=== PATIENT | male | born 1945 | race Caucasian/White ===

== ENCOUNTER 2017-09-28 05:45 | Day surgery (SDC) | payer MEDICARE ==
[2017-09-26 09:40] VITALS: BP 151/77
[2017-09-26 09:46] LABS: BASOPHILS % (AUTO) 0.5 % (0.0-5.0); EOSINOPHILS % (AUTO) 2.1 % (0.0-8.0); HEMATOCRIT 43.3 % (42-54); LYMPHOCYTES % (AUTO) 14.9 % (21.0-51.0); MEAN CORPUSCULAR HEMOGLOBIN 29.9 pg (27.0-33.0); MEAN CORPUSCULAR HGB CONC 34.2 g/dL (32.0-36.0); MEAN CORPUSCULAR VOLUME 87.5 fL (79-99); MONOCYTES % (AUTO) 7.3 % (3.0-13.0); NEUTROPHILS % (AUTO) 75.2 % (40.0-77.0); PLATELET COUNT (AUTO) 204 K/uL (130-400); RED BLOOD CELL COUNT(AUTO) 4.95 MIL/uL (4.50-6.20); RED CELL DISTRIBUTION WIDTH 17.6 % (11.0-15.5); WHITE BLOOD COUNT (AUTO) 7.8 K/uL (4.8-10.8)
[2017-09-26 09:55] LABS: CREATININE 1.2 mg/dL (0.5-1.5); POTASSIUM 4.3 mmol/L (3.5-5.1)
[2017-09-26 09:56] LABS: APPEARANCE,URINE CLEAR (CLEAR); BILIRUBIN,URINE NEGATIVE (NEGATIVE); COLOR,URINE YELLOW (YELLOW); GLUCOSE, URINE (UA) 100 mg/dL (NEGATIVE); KETONES,URINE NEGATIVE (NEGATIVE); LEUKOCYTE ESTERASE ,URINE TRACE (NEGATIVE); NITRATE,URINE NEGATIVE (NEGATIVE); OCCULT BLOOD,URINE SMALL (NEGATIVE); PH,URINE 5.5 (5.0-8.0); PROTEIN,URINE 100 (NEGATIVE); UROBILINOGEN,URINE 0.2 mg/dL (0.2-1.0)
[2017-09-26 10:04] LABS: INR 2.07 (0.85-1.15); PARTIAL THROMBOPLASTIN TIME 37.8 SEC (26.3-35.5); PROTHROMBIN TIME 21.4 SEC (9.6-11.6)
[2017-09-26 10:09] LABS: BACTERIA,URINE Rare /HPF (None Seen); RBC,URINE 0-1 /HPF (0-1); SQUAMOUS EPITHELIAL CELL,UR Rare /HPF (0-2); WBC,URINE 0-1 /HPF (0-1)
[2017-09-28] VITALS (9 sets, daily range): BP systolic 119–158; BP diastolic 58–84
[~2017-09-28] VITALS: Ht 182.9 cm; Wt 82.7 kg
[~2017-09-28 05:45] MED LIST: ALLO100T PO; CARAL PO; CARV25TA PO; CLON1TAB5 PO; COLC0.6T67 PO; DIGO125T87 PO; DOCU-272 PO; ESOM20CA31 PO; FISH1CAP49 PO; FLUT1DIS3 IH; FURO40TA5 PO; GUAN2TAB PO; INSU3INS3 SQ; ISOS60TA4 PO; LEVE250T2 PO; SODIUM CHLORIDE 0.9% 500ML 500 ML IV SCH; TRAZ-185 PO; WARF10TA6 PO; WARF7.5T6 PO; iron PO
[2017-09-28 06:38] LABS: INR 1.28 (0.85-1.15); PROTHROMBIN TIME 13.4 SEC (9.6-11.6)
[2017-09-28] MEDS ORDERED: LIDOCAINE HCL 2% 20ML ONE (07:13)
[2017-09-28] MEDS ORDERED: ISOVUE-300 100 ML VIAL IV ONE ×3 (07:13→07:57)
[2017-09-28] MEDS ORDERED: SODIUM CHLORIDE 0.9% 1000ML 1,000 ML IV ONE (07:17)
[2017-09-28] MEDS ORDERED: PHARMACY COMMUNICATION MISC SCH (07:45)
[2017-09-28] MEDS ORDERED: HYDRALAZINE HCL 20 MG/ML VIAL ONE (08:12)
[2017-09-28] MEDS ORDERED: DEXTROSE 50%-WATER 50 ML DISP.SYRIN IV PRN (08:15)
[2017-09-28] MEDS ORDERED: GLUCAGON 1MG KIT 1 MG ML IM PRN (08:15)
[2017-09-28] MEDS ORDERED: INSULIN HUMULIN R 100 UNIT/ML 3ML ONE (09:14)
[2017-09-28] MEDS ORDERED: INSULIN HUMULIN R 100 UNIT/ML 3ML SQ SCH (11:30)
[2017-10-15] MEDS ORDERED: TRAZ-185 PO (13:07)
== END 2017-09-28 11:35 | disposition home or self-care (01) ==
LOC: DAH 05:45
PROVIDERS: ATTEND Internal Medicine Cardiovascular Disease
DX: I65.22 Occlusion and stenosis of left carotid artery (principal); I48.2 Chronic atrial fibrillation; I10 Essential (primary) hypertension; I25.2 Old myocardial infarction; E78.5 Hyperlipidemia, unspecified; Z79.01 Long term (current) use of anticoagulants; Z68.21 Body mass index [BMI] 21.0-21.9, adult; Z79.4 Long term (current) use of insulin; Z79.899 Other long term (current) drug therapy; I25.10 Atherosclerotic heart disease of native coronary artery without angina pectoris; Z95.1 Presence of aortocoronary bypass graft; E11.9 Type 2 diabetes mellitus without complications; Z88.8 Allergy status to other drugs, medicaments and biological substances
CPT/HCPCS: 36224; 36415 ×2; 71045; 80048; 81001; 82948 ×2; 85025; 85610 ×2; 85730; 93005; A4606; C1760; C1894; J0360; J1644; J1815; J3490; J7030; Q9967 ×2; 36222; 36228

== ENCOUNTER 2017-10-15 10:15 | Inpatient (IN) | payer MEDICARE ==
[~2017-10-15] VITALS: Ht 64.5 cm; Wt 84.5 kg
[~2017-10-15 10:15] MED LIST changes: -CARAL PO; -CLON1TAB5 PO; -DOCU-272 PO; -ESOM20CA31 PO; -FISH1CAP49 PO; -FLUT1DIS3 IH; -FURO40TA5 PO; -INSU3INS3 SQ; -SODIUM CHLORIDE 0.9% 500ML 500 ML IV SCH; -iron PO
[2017-10-15 10:55] VITALS: BP 189/81
[2017-10-15 11:17] LABS: BASOPHILS % (AUTO) 0.7 % (0.0-5.0); HEMATOCRIT 43.2 % (42-54); LYMPHOCYTES % (AUTO) 18.1 % (21.0-51.0); MEAN CORPUSCULAR HEMOGLOBIN 30.8 pg (27.0-33.0); MEAN CORPUSCULAR HGB CONC 34.8 g/dL (32.0-36.0); MEAN CORPUSCULAR VOLUME 88.6 fL (79-99); MONOCYTES % (AUTO) 8.5 % (3.0-13.0); NEUTROPHILS % (AUTO) 70.7 % (40.0-77.0); PLATELET COUNT (AUTO) 251 K/uL (130-400); RED BLOOD CELL COUNT(AUTO) 4.88 MIL/uL (4.50-6.20); RED CELL DISTRIBUTION WIDTH 16.4 % (11.0-15.5); WHITE BLOOD COUNT (AUTO) 7.4 K/uL (4.8-10.8)
[2017-10-15 11:23] LABS: CREATININE 1.2 mg/dL (0.5-1.5); POTASSIUM 4.6 mmol/L (3.5-5.1)
[2017-10-15 11:29] LABS: INR 1.3 (0.85-1.15); PARTIAL THROMBOPLASTIN TIME 36.2 SEC (26.3-35.5); PROTHROMBIN TIME 13.6 SEC (9.6-11.6)
[2017-10-15] MEDS ORDERED: SUCR1TAB2 PO (13:00)
[2017-10-15] MEDS ORDERED: FERS325 PO (13:00)
[2017-10-15] MEDS ORDERED: ADV250 IH (13:00)
[2017-10-15] MEDS ORDERED: ESOM20CA39 PO (13:00)
[2017-10-15] MEDS ORDERED: CLON0.5T23 PO (13:00)
[2017-10-15] MEDS ORDERED: MELA5CAP PO (13:07)
[2017-10-15] MEDS ORDERED: ASCO10007 PO (13:07)
[2017-10-15] MEDS ORDERED: vitamin b12 PO (13:07)
[2017-10-15] MEDS ORDERED: INUL1TAB4 PO (13:07)
[2017-10-15] MEDS ORDERED: ENOX80DI8 SQ (13:07)
[2017-10-15] MEDS ORDERED: DIPH25 PO (13:07)
[2017-10-15] MEDS ORDERED: INSU100I26 SQ (13:07)
[2017-10-15] MEDS ORDERED: FOLI-74 PO (13:09)
[2017-10-15] MEDS ORDERED: flonase EN (13:09)
[2017-10-17] VITALS (30 sets, daily range): BP systolic 134–216; BP diastolic 62–108
[2017-10-17] MEDS: CEFAZOLIN SODIUM 1 GM VIAL IVP SCH ×2 (05:00→08:45)
[2017-10-17] MEDS ORDERED: SODIUM CHLORIDE 0.9% 1000ML 1,000 ML IV ONE (07:59)
[2017-10-17] MEDS ORDERED: FENTANYL CITRATE PF 50 MCG/1 ML 2ML VIAL ONE ×5 (08:08→10:20)
[2017-10-17] MEDS ORDERED: MIDAZOLAM HCL 1 MG/ML 2ML VIAL ONE ×3 (08:08→10:09)
[2017-10-17] MEDS ORDERED: DEXMEDETOMIDINE HCL 200 MCG/2 ML VIAL IV SCH (08:15)
[2017-10-17] MEDS ORDERED: LIDOCAINE HCL 1% 20 ML VIAL ONE (08:16)
[2017-10-17] MEDS ORDERED: BUPIVACAINE/PF 0.25% 10ML VIAL IJ ONE (08:16)
[2017-10-17] MEDS ORDERED: SODIUM BICARB [NEONATAL] 4.2% 10ML SYG ONE (08:16)
[2017-10-17] MEDS ORDERED: BACITRACIN 50,000 UNIT VIAL ONE (08:17)
[2017-10-17] MEDS ORDERED: NAPR-1023 PO (08:36)
[2017-10-17] MEDS ORDERED: TRAM50TA4 PO (08:36)
[2017-10-17] MEDS ORDERED: SERT50TA PO (08:36)
[2017-10-17 08:47] LABS: INR 1.05 (0.85-1.15); PARTIAL THROMBOPLASTIN TIME 29.2 SEC (26.3-35.5)
[2017-10-17] MEDS ORDERED: CEFAZOLIN SODIUM 1 GM VIAL ONE (08:57)
[2017-10-17] MEDS ORDERED: NITROGLYCERIN 50 MG/D5% WATER 1 BOT ONE ×2 (09:42→16:58)
[2017-10-17] MEDS ORDERED: LABETALOL HCL 5 MG/ML 20ML VIAL IV ONE ×2 (09:46→13:12)
[2017-10-17] MEDS ORDERED: THROMBIN-JMI 5000 UNIT/VIAL TP ONE (10:34)
[2017-10-17] MEDS: ISOSORBIDE MONO 60 MG TAB.SR PO SCH (14:07)
[2017-10-17] MEDS: CARVEDILOL 12.5 MG TABLET PO SCH ×2 (14:07→20:05)
[2017-10-17] MEDS ORDERED: HYDROCODONE/ACETAMINOPHEN 7.5/325 MG TAB PO PRN ×2 (14:15→14:30)
[2017-10-17] MEDS: NITROGLYCERIN 1GM/1 INCH PACKET TD SCH ×2 (14:49→22:18)
[2017-10-17] MEDS: LABETALOL HCL 5 MG/ML 20ML VIAL IV PRN ×4 (15:37→21:33)
[2017-10-17] MEDS ORDERED: HYDRALAZINE HCL 20 MG/ML VIAL IM STA (15:46)
[2017-10-17] MEDS ORDERED: HYDRALAZINE HCL 20 MG/ML VIAL ONE ×2 (15:48→17:15)
[2017-10-17] MEDS: ONDANSETRON HCL 4 MG/2 ML VIAL IVP PRN (17:04)
[2017-10-17] MEDS ORDERED: HYDRALAZINE HCL 20 MG/ML VIAL IV STA (17:13)
[2017-10-17] MEDS ORDERED: AMLODIPINE BESYLATE 5 MG TAB PO SCH (17:45)
[2017-10-17] MEDS ORDERED: LABETALOL HCL 5 MG/ML 20ML VIAL IV SCH (17:45)
[2017-10-17] MEDS: HYDRALAZINE HCL 20 MG/ML VIAL IV PRN (19:53)
[2017-10-17] MEDS: NITROGLYCERIN 50 MG/D5% WATER 250 BOT IV PRN (19:55)
[2017-10-17] MEDS ORDERED: AMLODIPINE BESYLATE 5 MG TAB PO STA (20:53)
[2017-10-17] MEDS: INSULIN HUMULIN R 100 UNIT/ML 3ML SQ SCH (21:40)
[2017-10-18] VITALS (27 sets, daily range): BP systolic 139–195; BP diastolic 70–103
[2017-10-18] MEDS: HYDRALAZINE HCL 20 MG/ML VIAL IV PRN ×3 (00:07→18:08)
[2017-10-18] MEDS: ONDANSETRON HCL 4 MG/2 ML VIAL IVP PRN ×2 (00:52→07:46)
[2017-10-18] MEDS: NITROGLYCERIN 50 MG/D5% WATER 250 BOT IV PRN ×2 (00:57→06:38)
[2017-10-18 04:10] LABS: BASOPHILS % (AUTO) 0.2 % (0.0-5.0); EOSINOPHILS % (AUTO) 0.1 % (0.0-8.0); HEMATOCRIT 42.8 % (42-54); LYMPHOCYTES % (AUTO) 4.9 % (21.0-51.0); MEAN CORPUSCULAR HEMOGLOBIN 30.2 pg (27.0-33.0); MEAN CORPUSCULAR HGB CONC 34.4 g/dL (32.0-36.0); MEAN CORPUSCULAR VOLUME 87.7 fL (79-99); MONOCYTES % (AUTO) 6.7 % (3.0-13.0); NEUTROPHILS % (AUTO) 88.1 % (40.0-77.0); NUCLEATED RED BLOOD CELLS 0.1 % (0.0-0.19); PLATELET COUNT (AUTO) 260 K/uL (130-400); RED BLOOD CELL COUNT(AUTO) 4.88 MIL/uL (4.50-6.20); RED CELL DISTRIBUTION WIDTH 15.8 % (11.0-15.5); WHITE BLOOD COUNT (AUTO) 14.2 K/uL (4.8-10.8)
[2017-10-18] MEDS: NITROGLYCERIN 1GM/1 INCH PACKET TD SCH ×3 (06:18→20:29)
[2017-10-18] MEDS: INSULIN HUMULIN R 100 UNIT/ML 3ML SQ SCH ×4 (06:19→20:27)
[2017-10-18] MEDS: LABETALOL HCL 5 MG/ML 20ML VIAL IV PRN ×3 (06:33→17:12)
[2017-10-18] MEDS ORDERED: HEPARIN 25000 UNITS/250 ML D5W 250 ML IV PRN (07:30)
[2017-10-18] MEDS ORDERED: WARFARIN SODIUM 10 MG TABLET PO SCH (07:45)
[2017-10-18] MEDS: ISOSORBIDE MONO 60 MG TAB.SR PO SCH (07:50)
[2017-10-18 07:53] LABS: INR 1.03 (0.85-1.15); PARTIAL THROMBOPLASTIN TIME 27.5 SEC (26.3-35.5); PROTHROMBIN TIME 10.8 SEC (9.6-11.6)
[2017-10-18] MEDS: ENOXAPARIN SODIUM 80 MG/0.8 ML SQ SCH ×2 (08:01→20:24)
[2017-10-18] MEDS: FUROSEMIDE 40 MG TABLET PO SCH (08:01)
[2017-10-18] MEDS: PANTOPRAZOLE SODIUM 40 MG TABLET.DR PO SCH (08:01)
[2017-10-18] MEDS: CARVEDILOL 25 MG TABLET PO SCH ×2 (08:02→20:23)
[2017-10-18] MEDS: GUANFACINE HCL 1 MG TAB PO SCH (08:14)
[2017-10-18] MEDS: ALLOPURINOL 100 MG TABLET PO SCH ×3 (08:28→20:23)
[2017-10-18] MEDS ORDERED: AMLODIPINE BESYLATE 5 MG TAB PO SCH (09:00)
[2017-10-18] MEDS ORDERED: ENOXAPARIN SODIUM 1 MG/KG SQ SCH (09:00)
[2017-10-18] MEDS: SUCRALFATE 1 GM/10 ML PO SCH ×3 (11:47→20:23)
[2017-10-18] MEDS ORDERED: ACETAMINOPHEN 325 MG TAB PO PRN (19:15)
[2017-10-19] VITALS (8 sets, daily range): BP systolic 147–177; BP diastolic 54–98
[2017-10-19 03:52] LABS: HEMATOCRIT 46.6 % (42-54); MEAN CORPUSCULAR HEMOGLOBIN 30.7 pg (27.0-33.0); MEAN CORPUSCULAR HGB CONC 34.9 g/dL (32.0-36.0); MEAN CORPUSCULAR VOLUME 88.2 fL (79-99); PLATELET COUNT (AUTO) 236 K/uL (130-400); RED BLOOD CELL COUNT(AUTO) 5.29 MIL/uL (4.50-6.20); WHITE BLOOD COUNT (AUTO) 10.8 K/uL (4.8-10.8)
[2017-10-19 03:57] LABS: INR 1.1 (0.85-1.15); PROTHROMBIN TIME 11.5 SEC (9.6-11.6)
[2017-10-19 04:36] LABS: BAND NEUTROPHILS % (MANUAL) 3 % (0-2); EOSINOPHILS % (MANUAL) 1 % (1-6); LYMPHOCYTES % (MANUAL) 11 % (22-44); MAN.DIFF COMMENT-IMPRESSION MANUAL DIFFERENTIAL; MONOCYTES % (MANUAL) 9 % (2-9); PLATELET MORPHOLOGY COMMENT ADEQUATE; SEGMENTED NEUTROPHILS % 76 % (40-70)
[2017-10-19] MEDS: NITROGLYCERIN 1GM/1 INCH PACKET TD SCH (05:51)
[2017-10-19] MEDS: SUCRALFATE 1 GM/10 ML PO SCH (05:51)
[2017-10-19] MEDS: INSULIN HUMULIN R 100 UNIT/ML 3ML SQ SCH (05:53)
[2017-10-19] MEDS: HYDRALAZINE HCL 20 MG/ML VIAL IV PRN (06:08)
[2017-10-19] MEDS ORDERED: ENOX80DI8 SQ (07:16)
[2017-10-19] MEDS ORDERED: AMLO5TAB4 PO (07:16)
[2017-10-19] MEDS ORDERED: WARFARIN SODIUM 10 MG TABLET PO SCH (07:30)
[2017-10-19] MEDS ORDERED: POLYETHYLENE GLYCOL 3350 17 GM POWD.PACK PO SCH (07:30)
[2017-10-19] MEDS: ISOSORBIDE MONO 60 MG TAB.SR PO SCH (08:35)
[2017-10-19] MEDS: CARVEDILOL 25 MG TABLET PO SCH (08:35)
[2017-10-19] MEDS: FUROSEMIDE 40 MG TABLET PO SCH (08:36)
[2017-10-19] MEDS: PANTOPRAZOLE SODIUM 40 MG TABLET.DR PO SCH (08:36)
[2017-10-19] MEDS: ALLOPURINOL 100 MG TABLET PO SCH (08:37)
[2017-10-19] MEDS: ENOXAPARIN SODIUM 80 MG/0.8 ML SQ SCH (08:39)
[2017-10-19] MEDS: GUANFACINE HCL 1 MG TAB PO SCH (08:46)
[2017-10-19] MEDS ORDERED: DIGOXIN 125 MCG TABLET PO SCH (09:00)
[2017-10-19] MEDS ORDERED: AMLODIPINE BESYLATE 5 MG TAB PO SCH (09:00)
[2017-10-19] MEDS ORDERED: ASPIRIN 81MG TAB.CHEW PO SCH (09:00)
== END 2017-10-19 11:20 | disposition home or self-care (01) | DRG 39 ==
LOC: EDSTATUS 10:15 → DAHIP 10-17 07:26 → 2CH 10-17 11:58
PROVIDERS: ADMIT Surgery; ATTEND Surgery
PROC: 03CJ0ZZ Extirpation of Matter from Left Common Carotid Artery, Open Approach (ICD-10-PCS; principal; 2017-10-17 08:30)
DX: I65.22 Occlusion and stenosis of left carotid artery (principal); E11.22 Type 2 diabetes mellitus with diabetic chronic kidney disease; I48.2 Chronic atrial fibrillation; N18.3 Chronic kidney disease, stage 3 (moderate); I12.9 Hypertensive chronic kidney disease with stage 1 through stage 4 chronic kidney disease, or unspecified chronic kidney disease; E78.5 Hyperlipidemia, unspecified; I25.10 Atherosclerotic heart disease of native coronary artery without angina pectoris; I35.8 Other nonrheumatic aortic valve disorders; Z16.24 Resistance to multiple antibiotics; Z95.2 Presence of prosthetic heart valve; Z79.01 Long term (current) use of anticoagulants; K21.9 Gastro-esophageal reflux disease without esophagitis; E78.00 Pure hypercholesterolemia, unspecified; J44.9 Chronic obstructive pulmonary disease, unspecified; G47.30 Sleep apnea, unspecified; M19.90 Unspecified osteoarthritis, unspecified site; Z86.12 Personal history of poliomyelitis; Z87.01 Personal history of pneumonia (recurrent); Z88.5 Allergy status to narcotic agent; Z95.1 Presence of aortocoronary bypass graft; Z95.5 Presence of coronary angioplasty implant and graft; Z86.73 Personal history of transient ischemic attack (TIA), and cerebral infarction without residual deficits; I25.2 Old myocardial infarction
CPT/HCPCS: 36415; 80048; 80162; 82948; 85025; 85610; 85730; 93005; A4218; J0360; J0690; J1644; J1650; J1815; J2250; J2405; J3010; J3490; J7030; J7040

== ENCOUNTER 2018-10-03 12:19 | Emergency (ER) | payer MEDICARE ==
[~2018-10-03 12:19] MED LIST changes: +ADV250 IH; +AMLO5TAB4 PO; +ASCO10007 PO; +CLON0.5T23 PO; +DIPH25 PO; +ENOX80DI8 SQ; +ESOM20CA39 PO; +FERS325 PO; +FOLI-74 PO; +INSU100I26 SQ; +INUL1TAB4 PO; +MELA5CAP PO; +SUCR1TAB2 PO; +flonase EN; +vitamin b12 PO
[2018-10-03 14:29] LABS: BASOPHILS % (AUTO) 0.5 % (0.0-5.0); EOSINOPHILS % (AUTO) 2.6 % (0.0-8.0); HEMATOCRIT 31.5 % (42-54); LYMPHOCYTES % (AUTO) 21.7 % (21.0-51.0); MEAN CORPUSCULAR HEMOGLOBIN 30.7 pg (27.0-33.0); MEAN CORPUSCULAR HGB CONC 33.4 g/dL (32.0-36.0); MEAN CORPUSCULAR VOLUME 91.9 fL (79-99); MONOCYTES % (AUTO) 13.7 % (3.0-13.0); NEUTROPHILS % (AUTO) 61.5 % (40.0-77.0); NUCLEATED RED BLOOD CELLS 0.1 % (0.0-0.19); PLATELET COUNT (AUTO) 262 K/uL (130-400); RED BLOOD CELL COUNT(AUTO) 3.43 MIL/uL (4.50-6.20); RED CELL DISTRIBUTION WIDTH 16.3 % (11.0-15.5); WHITE BLOOD COUNT (AUTO) 5.3 K/uL (4.8-10.8)
[2018-10-03 14:40] LABS: CREATININE 1.8 mg/dL (0.5-1.5); POTASSIUM 4.2 mmol/L (3.5-5.1)
[2018-10-03 14:41] LABS: INR 1.03 (0.85-1.15); PARTIAL THROMBOPLASTIN TIME 33.3 SEC (26.3-35.5); PROTHROMBIN TIME 10.8 SEC (9.6-11.6)
[2018-10-03 14:44] LABS: ALBUMIN 3.9 g/dL (3.5-5.0); BILIRUBIN,TOTAL 0.3 mg/dL (0.2-1.0); TOTAL PROTEIN, SERUM 7.9 g/dL (6.0-8.3)
[2018-10-03] MEDS ORDERED: FUROSEMIDE 10 MG/ML 2ML VIAL ONE (17:25)
== END 2018-10-03 18:04 | disposition home or self-care (01) ==
LOC: EDH 12:19
DX: I11.0 Hypertensive heart disease with heart failure (principal); I50.9 Heart failure, unspecified; I48.91 Unspecified atrial fibrillation; R06.00 Dyspnea, unspecified; J44.9 Chronic obstructive pulmonary disease, unspecified; E11.9 Type 2 diabetes mellitus without complications; I25.10 Atherosclerotic heart disease of native coronary artery without angina pectoris; Z86.73 Personal history of transient ischemic attack (TIA), and cerebral infarction without residual deficits; Z79.4 Long term (current) use of insulin; Z88.5 Allergy status to narcotic agent
CPT/HCPCS: 36415; 71045; 80053; 84484 ×2; 85025; 85610; 85730; 93005; 96374; 99285; J1940

== ENCOUNTER 2018-10-04 09:53 | Emergency (ER) | payer MEDICARE ==
[2018-10-04 10:31] LABS: BASOPHILS % (AUTO) 0.3 % (0.0-5.0); EOSINOPHILS % (AUTO) 2.4 % (0.0-8.0); HEMATOCRIT 32.7 % (42-54); LYMPHOCYTES % (AUTO) 15.8 % (21.0-51.0); MEAN CORPUSCULAR HEMOGLOBIN 31.8 pg (27.0-33.0); MEAN CORPUSCULAR HGB CONC 34.4 g/dL (32.0-36.0); MEAN CORPUSCULAR VOLUME 92.4 fL (79-99); MONOCYTES % (AUTO) 9.9 % (3.0-13.0); NEUTROPHILS % (AUTO) 71.6 % (40.0-77.0); NUCLEATED RED BLOOD CELLS 0.1 % (0.0-0.19); PLATELET COUNT (AUTO) 297 K/uL (130-400); RED BLOOD CELL COUNT(AUTO) 3.54 MIL/uL (4.50-6.20); RED CELL DISTRIBUTION WIDTH 16.2 % (11.0-15.5); WHITE BLOOD COUNT (AUTO) 8.9 K/uL (4.8-10.8)
[2018-10-04 10:39] LABS: POTASSIUM 4.8 mmol/L (3.5-5.1)
[2018-10-04 10:40] LABS: INR 1.14 (0.85-1.15); PARTIAL THROMBOPLASTIN TIME 31.7 SEC (26.3-35.5); PROTHROMBIN TIME 11.9 SEC (9.6-11.6)
[2018-10-04 10:44] LABS: BILIRUBIN,TOTAL 0.3 mg/dL (0.2-1.0); TOTAL PROTEIN, SERUM 8.2 g/dL (6.0-8.3)
[2018-10-04 10:53] LABS: APPEARANCE,URINE Clear (CLEAR); BILIRUBIN,URINE Negative (NEGATIVE); COLOR,URINE Yellow (YELLOW); GLUCOSE, URINE (UA) 500 mg/dL (NEGATIVE); KETONES,URINE Negative (NEGATIVE); LEUKOCYTE ESTERASE ,URINE Negative (NEGATIVE); NITRATE,URINE Negative (NEGATIVE); OCCULT BLOOD,URINE Negative (NEGATIVE); PROTEIN,URINE Trace mg/dL (NEGATIVE); UROBILINOGEN,URINE 0.2 mg/dL (0.2-1.0)
[2018-10-04 11:13] LABS: BACTERIA,URINE Rare /HPF (None Seen); SQUAMOUS EPITHELIAL CELL,UR Rare /HPF (0-2); WBC,URINE 0-1 /HPF (0-1)
[2018-10-04 11:16] LABS: B-TYPE NATRIURETIC PEPTIDE 103 pg/mL (0-100)
[2018-10-04 14:08] LABS: ABG BASE EXCESS -6.8 mmol/L (-2.0-3.0); ABG HCO3 16.7 mmol/L (21.0-28.0); ABG OXYGEN SATURATION 97.9 % (95.0-99.0); ABG PCO2 29 mmHg (35-48)
== END 2018-10-04 15:04 | disposition home or self-care (01) ==
LOC: EDH 09:53
DX: E86.0 Dehydration (principal); I11.0 Hypertensive heart disease with heart failure; I50.9 Heart failure, unspecified; I25.10 Atherosclerotic heart disease of native coronary artery without angina pectoris; E11.9 Type 2 diabetes mellitus without complications; J44.9 Chronic obstructive pulmonary disease, unspecified; Z79.4 Long term (current) use of insulin
CPT/HCPCS: 36415; 36600; 71045; 80053; 81001; 82803; 83880; 84484; 85025; 85610; 85730; 93005

== ENCOUNTER → 2018-10-11 | Outpatient (CLI) | payer MEDICARE | END | disposition home or self-care (01) | LOC: SHCH 15:06 | PROVIDERS: ATTEND Internal Medicine Cardiovascular Disease | DX: I07.1 Rheumatic tricuspid insufficiency (principal); I11.9 Hypertensive heart disease without heart failure; Z95.2 Presence of prosthetic heart valve | CPT/HCPCS: 93306 ==

== ENCOUNTER 2018-11-26 11:30 | Inpatient (IN) | payer MEDICARE ==
[~2018-11-26] VITALS: Ht 182.9 cm; Wt 77.6 kg
[2018-11-26] MEDS ORDERED: OXYMETAZOLINE HCL SPRAY 15 ML BOTTLE ONE (11:51)
[2018-11-26 11:55] LABS: BASOPHILS % (AUTO) 0.5 % (0.0-5.0); EOSINOPHILS % (AUTO) 3.1 % (0.0-8.0); LYMPHOCYTES % (AUTO) 17.1 % (21.0-51.0); MEAN CORPUSCULAR HEMOGLOBIN 29.9 pg (27.0-33.0); MEAN CORPUSCULAR HGB CONC 32.6 g/dL (32.0-36.0); MEAN CORPUSCULAR VOLUME 91.8 fL (79-99); MONOCYTES % (AUTO) 8.4 % (3.0-13.0); NEUTROPHILS % (AUTO) 70.9 % (40.0-77.0); NUCLEATED RED BLOOD CELLS 0.3 % (0.0-0.19); PLATELET COUNT (AUTO) 390 K/uL (130-400); RED BLOOD CELL COUNT(AUTO) 3.15 MIL/uL (4.50-6.20); RED CELL DISTRIBUTION WIDTH 17.2 % (11.0-15.5); WHITE BLOOD COUNT (AUTO) 6.5 K/uL (4.8-10.8)
[2018-11-26 12:00] LABS: CREATININE 1.6 mg/dL (0.5-1.5); POTASSIUM 4.5 mmol/L (3.5-5.1)
[2018-11-26 12:03] LABS: INR 1.41 (0.85-1.15); PARTIAL THROMBOPLASTIN TIME 36.8 SEC (26.3-35.5); PROTHROMBIN TIME 14.7 SEC (9.6-11.6)
[2018-11-26 12:05] LABS: ALBUMIN 3.5 g/dL (3.5-5.0); BILIRUBIN,TOTAL 0.2 mg/dL (0.2-1.0); TOTAL PROTEIN, SERUM 7.4 g/dL (6.0-8.3)
[2018-11-26] MEDS ORDERED: ONDANSETRON HCL 4 MG/2 ML VIAL ONE (15:30)
[2018-11-26] MEDS ORDERED: MORPHINE SULFATE 4 MG/1ML SYG ONE (15:31)
[2018-11-26] MEDS ORDERED: SODIUM CHLORIDE 0.9% 1000ML 1,000 ML IV ONE (16:49)
[2018-11-26] MEDS ORDERED: HYDRALAZINE HCL 20 MG/ML VIAL ONE (18:11)
[2018-11-26] MEDS ORDERED: FAMOTIDINE/PF 20 MG/2 ML VIAL IV SCH (18:35)
[2018-11-26] MEDS ORDERED: ACETAMINOPHEN EXTRA STRENGTH 500 MG TABLET ONE (20:26)
[2018-11-27 03:40] VITALS: BP 161/62
[2018-11-27] MEDS ORDERED: ASPI-1197 PO (04:43)
[2018-11-27] MEDS ORDERED: ALLO100T PO (04:43)
[2018-11-27] MEDS ORDERED: MONT10TA24 PO (04:43)
[2018-11-27] MEDS ORDERED: GABA-529 PO (04:43)
[2018-11-27] MEDS ORDERED: METF-444 PO (04:43)
[2018-11-27] MEDS ORDERED: WARF7.5T49 PO (04:44)
[2018-11-27] MEDS ORDERED: WARF-57 PO (04:44)
[2018-11-27 07:00] VITALS: BP 141/75
[2018-11-27] MEDS: MULTIVITAMINS/MINERALS/IRO TAB PO SCH (09:00)
[2018-11-27] MEDS: AMLODIPINE BESYLATE 5 MG TAB PO SCH (09:14)
[2018-11-27] MEDS: SUCRALFATE 1 GM TABLET PO SCH ×4 (09:14→20:53)
[2018-11-27] MEDS: ISOSORBIDE MONO 60 MG TAB.SR PO SCH (09:15)
[2018-11-27] MEDS: CARVEDILOL 25 MG TABLET PO SCH ×2 (09:15→20:05)
[2018-11-27] MEDS: ACETAMINOPHEN 325 MG TAB PO PRN ×2 (09:45→15:28)
[2018-11-27 10:33] VITALS: BP 124/65
[2018-11-27] MEDS: CYANOCOBALAMIN (VITAMIN B-12) 1,000 MCG TABLET PO SCH (11:58)
[2018-11-27] MEDS: ASCORBIC ACID 500 MG TAB PO SCH (11:58)
[2018-11-27] MEDS: FERROUS SULFATE 325 MG TABLET.DR PO SCH (11:59)
[2018-11-27] MEDS: SODIUM CHLORIDE 0.9% 1000ML 1,000 ML IV SCH (13:31)
[2018-11-27 14:10] LABS: INR 1.41 (0.85-1.15); PARTIAL THROMBOPLASTIN TIME 35.9 SEC (26.3-35.5); PROTHROMBIN TIME 14.7 SEC (9.6-11.6)
[2018-11-27 14:42] LABS: HEMATOCRIT 29.9 % (42-54); MEAN CORPUSCULAR HEMOGLOBIN 30.7 pg (27.0-33.0); MEAN CORPUSCULAR HGB CONC 33.3 g/dL (32.0-36.0); MEAN CORPUSCULAR VOLUME 92.4 fL (79-99); PLATELET COUNT (AUTO) 384 K/uL (130-400); RED BLOOD CELL COUNT(AUTO) 3.24 MIL/uL (4.50-6.20); RED CELL DISTRIBUTION WIDTH 17.1 % (11.0-15.5); WHITE BLOOD COUNT (AUTO) 9.5 K/uL (4.8-10.8)
[2018-11-27 14:58] LABS: INR 1.47 (0.85-1.15); PARTIAL THROMBOPLASTIN TIME 36.6 SEC (26.3-35.5); PROTHROMBIN TIME 15.3 SEC (9.6-11.6)
[2018-11-27 15:14] LABS: CREATININE 1.4 mg/dL (0.5-1.5); POTASSIUM 4.3 mmol/L (3.5-5.1)
[2018-11-27 16:00] VITALS: BP 136/67
[2018-11-27] MEDS: DIGOXIN 125 MCG TABLET PO SCH (16:05)
[2018-11-27] MEDS ORDERED: WARFARIN SODIUM 2 MG TAB PO SCH (17:00)
[2018-11-27] MEDS: MONTELUKAST SODIUM 10 MG TAB PO SCH (17:04)
[2018-11-27] MEDS: TRAZODONE HCL 50 MG TAB PO SCH (20:02)
[2018-11-27] MEDS: CLONAZEPAM 0.5 MG TABLET PO SCH (20:02)
[2018-11-27] MEDS: CEPHALEXIN 500 MG CAPSULE PO SCH (20:05)
[2018-11-27] MEDS: DIPHENHYDRAMINE HCL 50 MG CAPSULE PO SCH (20:06)
[2018-11-27] MEDS: **HM** MELATONIN 5MG PO SCH (20:07)
[2018-11-27 20:11] VITALS: BP 136/76
[2018-11-27] MEDS: LACTULOSE 20 GM/30 ML UDCUP PO PRN (21:46)
[2018-11-28] VITALS (7 sets, daily range): BP systolic 132–156; BP diastolic 59–83
[2018-11-28 03:29] LABS: HEMATOCRIT 27.4 % (42-54); MEAN CORPUSCULAR HEMOGLOBIN 30.4 pg (27.0-33.0); MEAN CORPUSCULAR HGB CONC 33.1 g/dL (32.0-36.0); PLATELET COUNT (AUTO) 344 K/uL (130-400); RED BLOOD CELL COUNT(AUTO) 2.98 MIL/uL (4.50-6.20); RED CELL DISTRIBUTION WIDTH 17.5 % (11.0-15.5); WHITE BLOOD COUNT (AUTO) 6.8 K/uL (4.8-10.8)
[2018-11-28 03:37] LABS: CREATININE 1.4 mg/dL (0.5-1.5); POTASSIUM 3.6 mmol/L (3.5-5.1)
[2018-11-28 03:46] LABS: INR 1.59 (0.85-1.15); PARTIAL THROMBOPLASTIN TIME 37.8 SEC (26.3-35.5); PROTHROMBIN TIME 16.5 SEC (9.6-11.6)
[2018-11-28] MEDS: ACETAMINOPHEN 325 MG TAB PO PRN (04:03)
[2018-11-28] MEDS: PANTOPRAZOLE SODIUM 40 MG TABLET.DR PO SCH (07:52)
[2018-11-28] MEDS: SUCRALFATE 1 GM TABLET PO SCH ×4 (07:52→20:54)
[2018-11-28] MEDS: MULTIVITAMINS/MINERALS/IRO TAB PO SCH (09:00)
[2018-11-28] MEDS: SODIUM CHLORIDE 0.9% 1000ML 1,000 ML IV SCH (09:15)
[2018-11-28] MEDS: CARVEDILOL 25 MG TABLET PO SCH ×2 (09:48→20:55)
[2018-11-28] MEDS: DIPHENHYDRAMINE HCL 50 MG CAPSULE PO SCH ×2 (09:48→20:54)
[2018-11-28] MEDS: CEPHALEXIN 500 MG CAPSULE PO SCH ×2 (09:49→21:00)
[2018-11-28] MEDS: ISOSORBIDE MONO 60 MG TAB.SR PO SCH (09:49)
[2018-11-28] MEDS: AMLODIPINE BESYLATE 5 MG TAB PO SCH (09:49)
[2018-11-28] MEDS: CYANOCOBALAMIN (VITAMIN B-12) 1,000 MCG TABLET PO SCH (12:04)
[2018-11-28] MEDS: ASCORBIC ACID 500 MG TAB PO SCH (12:04)
[2018-11-28] MEDS: FERROUS SULFATE 325 MG TABLET.DR PO SCH (12:04)
[2018-11-28] MEDS: MONTELUKAST SODIUM 10 MG TAB PO SCH (16:25)
[2018-11-28] MEDS: WARFARIN SODIUM 2 MG TAB PO SCH (16:25)
[2018-11-28] MEDS: TRAZODONE HCL 50 MG TAB PO SCH (21:00)
[2018-11-28] MEDS: CLONAZEPAM 0.5 MG TABLET PO SCH (21:00)
[2018-11-28] MEDS: **HM** MELATONIN 5MG PO SCH (21:00)
[2018-11-29] VITALS (7 sets, daily range): BP systolic 135–158; BP diastolic 60–93
[2018-11-29 04:05] LABS: INR 1.83 (0.85-1.15)
[2018-11-29 07:50] LABS: BASOPHILS % (AUTO) 0.5 % (0.0-5.0); EOSINOPHILS % (AUTO) 2.5 % (0.0-8.0); HEMATOCRIT 31.9 % (42-54); LYMPHOCYTES % (AUTO) 19.2 % (21.0-51.0); MEAN CORPUSCULAR HEMOGLOBIN 30.5 pg (27.0-33.0); MEAN CORPUSCULAR HGB CONC 32.5 g/dL (32.0-36.0); MEAN CORPUSCULAR VOLUME 93.9 fL (79-99); NEUTROPHILS % (AUTO) 68.8 % (40.0-77.0); NUCLEATED RED BLOOD CELLS 0.1 % (0.0-0.19); PLATELET COUNT (AUTO) 371 K/uL (130-400); RED CELL DISTRIBUTION WIDTH 17.8 % (11.0-15.5)
--- NOTE | 2018-11-29 08:30 | NUR ---
PT. RESTING IN BED WITH HOB AT 30 DEGREES, RESP.'S EVEN AND UNLABORED. AAOX3, DENIES ANY CURRENT SOB, DENIES ANY CURRENT PAIN. NASAL PACKING IN PLACE; DRESSING NOTED ON TOP OF NASAL PACKING, SECURED IN PLACE WITH PAPER TAPE. DENIES ANY C/O N/V. VOIDS, W/O C/O. COMPLETE ASSESSMENT DONE. CALL LIGHT WITHIN REACH, VERBALIZED ABILITY TO USE. BED LOW, SIDE RAILS UP X2.
--- NOTE | 2018-11-29 08:57 | NUR ---
DC PLAN VISITED WITH PATIENT. PATIENT LIVES WITH SPOUSE. INDEPENDENT ABLE TO PERFORM ADL'S. PATIENT HAS WALKER, WHEEL CHAIR, FANCY BED, [facility] [place], 02. PATIENT FEELS SAFE TO RETURN HOME. Addendum: 12/02/18 at 0858 by OLIVIA NUNES RN Amended: Links added.
[2018-11-29] MEDS: MULTIVITAMINS/MINERALS/IRO TAB PO SCH (09:00)
[2018-11-29] MEDS: HEPARIN 25000 UNITS/250 ML D5W 250 ML IV SCH (10:03)
[2018-11-29] MEDS: DIPHENHYDRAMINE HCL 50 MG CAPSULE PO SCH ×2 (10:05→21:55)
[2018-11-29] MEDS: SUCRALFATE 1 GM TABLET PO SCH ×5 (10:05→20:53)
[2018-11-29] MEDS: CEPHALEXIN 500 MG CAPSULE PO SCH ×2 (10:05→20:53)
[2018-11-29] MEDS: ISOSORBIDE MONO 60 MG TAB.SR PO SCH (10:05)
[2018-11-29] MEDS: AMLODIPINE BESYLATE 5 MG TAB PO SCH (10:05)
[2018-11-29] MEDS: PANTOPRAZOLE SODIUM 40 MG TABLET.DR PO SCH (10:05)
[2018-11-29] MEDS: CARVEDILOL 25 MG TABLET PO SCH ×2 (10:06→20:53)
[2018-11-29] MEDS: CYANOCOBALAMIN (VITAMIN B-12) 1,000 MCG TABLET PO SCH (12:33)
[2018-11-29] MEDS: FERROUS SULFATE 325 MG TABLET.DR PO SCH (12:33)
[2018-11-29] MEDS: ASCORBIC ACID 500 MG TAB PO SCH (12:33)
[2018-11-29] MEDS: WARFARIN SODIUM 2 MG TAB PO SCH (17:07)
[2018-11-29] MEDS: MONTELUKAST SODIUM 10 MG TAB PO SCH (17:08)
[2018-11-29] MEDS: DIGOXIN 125 MCG TABLET PO SCH (17:08)
--- NOTE | 2018-11-29 19:20 | NUR ---
Received bedside report ,t. is on heparin drip @12units/hr and next PTT is 2300.Pt. is alert and coherent ,instructed to use call light when needing assistance.Pt. has nasal packing and dressing which is clean dry and intact.
[2018-11-29] MEDS: CLONAZEPAM 0.5 MG TABLET PO SCH (20:53)
[2018-11-29] MEDS: TRAZODONE HCL 50 MG TAB PO SCH (20:53)
[2018-11-29] MEDS: **HM** MELATONIN 5MG PO SCH (20:54)
[2018-11-29] MEDS: LACTULOSE 20 GM/30 ML UDCUP PO PRN (20:58)
--- NOTE | 2018-11-29 23:45 | NUR ---
Heparin drip off at this time x 1 hr.witnessed by another RN.Will resume in 1 hr and to reduce by 200 units /hr.and will recheck PTT in 6 hrs as per protocol.
[2018-11-30 04:19] VITALS: BP 145/74
[2018-11-30 06:55] LABS: INR 2.38 (0.85-1.15); PROTHROMBIN TIME 24.6 SEC (9.6-11.6)
[2018-11-30 06:59] LABS: PARTIAL THROMBOPLASTIN TIME 90.6 SEC (26.3-35.5)
[2018-11-30 07:50] VITALS: BP 144/79
--- NOTE | 2018-11-30 07:50 | NUR ---
DR. Eleazar PELAYO IN ROOM SPEAKING WITH PT. RE:PLAN OF CARE. QUESTIONS ANSWERED BY DR. PELAYO, PT. VERBALIZED UNDERSTANDING AND IN AGREEMENT WITH PLAN OF CARE.
[2018-11-30] MEDS: SUCRALFATE 1 GM TABLET PO SCH ×6 (09:00→21:43)
[2018-11-30] MEDS: MULTIVITAMINS/MINERALS/IRO TAB PO SCH (09:00)
[2018-11-30] MEDS: AMLODIPINE BESYLATE 5 MG TAB PO SCH (09:14)
[2018-11-30] MEDS: CARVEDILOL 25 MG TABLET PO SCH ×2 (09:14→21:44)
[2018-11-30] MEDS: PANTOPRAZOLE SODIUM 40 MG TABLET.DR PO SCH (09:14)
[2018-11-30] MEDS: DIPHENHYDRAMINE HCL 50 MG CAPSULE PO SCH ×2 (09:14→21:43)
[2018-11-30] MEDS: CEPHALEXIN 500 MG CAPSULE PO SCH ×2 (09:14→21:43)
[2018-11-30] MEDS: HEPARIN 25000 UNITS/250 ML D5W 250 ML IV SCH (09:52)
[2018-11-30] MEDS: ISOSORBIDE MONO 60 MG TAB.SR PO SCH (10:41)
[2018-11-30] MEDS: MULTIVITAMIN WITH MINERALS TABLET PO SCH (10:41)
[2018-11-30 11:35] VITALS: BP 155/77
[2018-11-30] MEDS: CYANOCOBALAMIN (VITAMIN B-12) 1,000 MCG TABLET PO SCH (12:23)
[2018-11-30] MEDS: FERROUS SULFATE 325 MG TABLET.DR PO SCH (12:23)
[2018-11-30] MEDS: ASCORBIC ACID 500 MG TAB PO SCH (12:23)
[2018-11-30 15:51] VITALS: BP 132/68
[2018-11-30] MEDS: WARFARIN SODIUM 2 MG TAB PO SCH (16:44)
[2018-11-30] MEDS: MONTELUKAST SODIUM 10 MG TAB PO SCH (16:44)
[2018-11-30 19:53] VITALS: BP 152/72
[2018-11-30] MEDS: **HM** MELATONIN 5MG PO SCH (21:00)
[2018-11-30] MEDS: TRAZODONE HCL 50 MG TAB PO SCH (21:43)
[2018-11-30] MEDS: CLONAZEPAM 0.5 MG TABLET PO SCH (21:43)
[2018-12-01] VITALS: BP 148/80
[2018-12-01 03:51] VITALS: BP 150/73
[2018-12-01 04:00] LABS: INR 2.73 (0.85-1.15); PROTHROMBIN TIME 28.1 SEC (9.6-11.6)
[2018-12-01 07:41] VITALS: BP 143/82
[2018-12-01] MEDS: MULTIVITAMIN WITH MINERALS TABLET PO SCH (08:36)
[2018-12-01] MEDS: CEPHALEXIN 500 MG CAPSULE PO SCH (08:36)
[2018-12-01] MEDS: SUCRALFATE 1 GM TABLET PO SCH (08:36)
[2018-12-01] MEDS: PANTOPRAZOLE SODIUM 40 MG TABLET.DR PO SCH (08:36)
[2018-12-01] MEDS: CARVEDILOL 25 MG TABLET PO SCH (08:36)
[2018-12-01] MEDS: ISOSORBIDE MONO 60 MG TAB.SR PO SCH (08:37)
[2018-12-01] MEDS: AMLODIPINE BESYLATE 5 MG TAB PO SCH (08:37)
[2018-12-01] MEDS: DIPHENHYDRAMINE HCL 50 MG CAPSULE PO SCH (08:42)
[2018-12-01 11:47] VITALS: BP 128/75
--- NOTE | 2018-12-01 12:08 | NUR ---
DISCHARGE INSTRUCTIONS/INFORMATION GIVEN TO PATIENT. NO NEW PRESCRIPTIONS HANDED. TEACH BACK METHOD USED TO EDUCATE PATIENT ON COAGULOPATHY, WARFARIN USE, DIET, PT/INR CHECKS, AND F/U APPOINTMENT. PIV X 2 REMOVED. TELE REMOVED AND RETURNED. ALL BELONGINGS PACKED AND TAKEN HOME.
== END 2018-12-01 12:09 | disposition home or self-care (01) | DRG 151 ==
LOC: EDH 11:30 → OBSVTOIN 15:45 → EDHIP 15:45 → 2AH 11-27 03:34
PROVIDERS: ADMIT Internal Medicine; ATTEND Internal Medicine
PROC: 2Y41X5Z Packing of Nasal Region using Packing Material (ICD-10-PCS; principal; 2018-11-26)
DX: R04.0 Epistaxis (principal); D63.8 Anemia in other chronic diseases classified elsewhere; I50.9 Heart failure, unspecified; I11.0 Hypertensive heart disease with heart failure; J32.9 Chronic sinusitis, unspecified; J84.10 Pulmonary fibrosis, unspecified; K74.60 Unspecified cirrhosis of liver; N28.1 Cyst of kidney, acquired; M10.9 Gout, unspecified; E11.9 Type 2 diabetes mellitus without complications; E78.5 Hyperlipidemia, unspecified; G47.33 Obstructive sleep apnea (adult) (pediatric); I25.10 Atherosclerotic heart disease of native coronary artery without angina pectoris; J44.9 Chronic obstructive pulmonary disease, unspecified; Z79.01 Long term (current) use of anticoagulants; Z79.51 Long term (current) use of inhaled steroids; Z79.82 Long term (current) use of aspirin; Z79.84 Long term (current) use of oral hypoglycemic drugs; Z79.899 Other long term (current) drug therapy; Z91.19 Patient's noncompliance with other medical treatment and regimen; Z95.1 Presence of aortocoronary bypass graft; Z95.2 Presence of prosthetic heart valve; Z86.73 Personal history of transient ischemic attack (TIA), and cerebral infarction without residual deficits
CPT/HCPCS: 36415; 71045; 80048; 80053; 85025; 85027; 85610; 85730; 86850; 86900; 86901; 93005; G0378; J0360; J1644; J2270; J2405; J7030; Q0163

== ENCOUNTER 2019-06-10 05:57 | Day surgery (SDC) | payer MEDICARE ==
[~2019-06-10] VITALS: Ht 182.9 cm; Wt 83.5 kg
[~2019-06-10 05:57] MED LIST changes: +ASPI-1197 PO; +DIGO125T71 PO; -DIGO125T87 PO; +GABA-529 PO; -LEVE250T2 PO; +METF-444 PO; +MONT10TA24 PO; +WARF-57 PO; -WARF10TA6 PO; +WARF7.5T49 PO; -WARF7.5T6 PO; -flonase EN
[2019-06-10] MEDS ORDERED: SODIUM CHLORIDE 0.9% 1000ML 1,000 ML IV ONE (06:19)
[2019-06-10 06:37] VITALS: BP 151/67
[2019-06-10 07:10] LABS: INR 1.16 (0.85-1.15); PROTHROMBIN TIME 12.1 SEC (9.6-11.6)
[2019-06-10] MEDS ORDERED: GARL1TAB2 PO (07:28)
[2019-06-10] MEDS ORDERED: LIDOCAINE HCL 1% 20 ML VIAL ONE (07:32)
[2019-06-10] MEDS ORDERED: PROPOFOL 10 MG/ML 20ML VIAL IV ONE (07:32)
[2019-06-10] MEDS ORDERED: DIPH-704 PO (07:39)
[2019-06-10] MEDS ORDERED: OMEG-112 PO (07:39)
[2019-06-10] MEDS ORDERED: DOCU250C90 PO (07:39)
[2019-06-10] MEDS ORDERED: CHOL500062 PO (07:39)
[2019-06-10] MEDS ORDERED: EMPA25TA PO (07:39)
[2019-06-10 07:43] VITALS: BP 129/58
[2019-06-10 07:48] VITALS: BP 124/67
[2019-06-10 07:53] VITALS: BP 136/68
[2019-06-10 08:00] VITALS: BP 137/67
== END 2019-06-10 08:12 | disposition home or self-care (01) ==
LOC: ENDO 05:57 → DAH 05:57 → ENDO 08:12
PROVIDERS: ATTEND Internal Medicine
DX: K30 Functional dyspepsia (principal); K29.50 Unspecified chronic gastritis without bleeding; K44.9 Diaphragmatic hernia without obstruction or gangrene; K31.89 Other diseases of stomach and duodenum; I11.0 Hypertensive heart disease with heart failure; I50.9 Heart failure, unspecified; G40.802 Other epilepsy, not intractable, without status epilepticus; E11.9 Type 2 diabetes mellitus without complications; J44.9 Chronic obstructive pulmonary disease, unspecified; E78.5 Hyperlipidemia, unspecified; I25.10 Atherosclerotic heart disease of native coronary artery without angina pectoris; F41.9 Anxiety disorder, unspecified; F32.9 Major depressive disorder, single episode, unspecified; I25.2 Old myocardial infarction; Z88.5 Allergy status to narcotic agent; Z88.8 Allergy status to other drugs, medicaments and biological substances; Z90.49 Acquired absence of other specified parts of digestive tract; Z79.899 Other long term (current) drug therapy; Z98.890 Other specified postprocedural states; Z86.73 Personal history of transient ischemic attack (TIA), and cerebral infarction without residual deficits; Z95.5 Presence of coronary angioplasty implant and graft; Z79.4 Long term (current) use of insulin; Z85.828 Personal history of other malignant neoplasm of skin; Z82.49 Family history of ischemic heart disease and other diseases of the circulatory system; Z83.3 Family history of diabetes mellitus; Z82.5 Family history of asthma and other chronic lower respiratory diseases
CPT/HCPCS: 36415; 43239; 82948 ×2; 85610; 88305; A4215; A4221; A4222; A4223; A4606; A4620; A4663; J2704; J7030

== ENCOUNTER → 2019-08-15 | Outpatient (CLI) | payer MEDICARE ==
[~2019-08-15] MED LIST changes: -ADV250 IH; -ASCO10007 PO; -ASPI-1197 PO; +CHOL500062 PO; -COLC0.6T67 PO; -DIGO125T71 PO; +DIPH-704 PO; -DIPH25 PO; +DOCU250C90 PO; +EMPA25TA PO; -ESOM20CA39 PO; -FERS325 PO; +GARL1TAB2 PO; -INUL1TAB4 PO; -METF-444 PO; -MONT10TA24 PO; +OMEG-112 PO; -WARF7.5T49 PO
== END | disposition home or self-care (01) ==
LOC: SHCH 12:53
PROVIDERS: ATTEND Internal Medicine Cardiovascular Disease
DX: I65.23 Occlusion and stenosis of bilateral carotid arteries (principal); I77.9 Disorder of arteries and arterioles, unspecified; I25.5 Ischemic cardiomyopathy
CPT/HCPCS: 93880

== ENCOUNTER → 2019-09-24 | Outpatient (CLI) | payer MEDICARE | END | disposition home or self-care (01) | LOC: SHCH 11:30 | PROVIDERS: ATTEND Internal Medicine Cardiovascular Disease | DX: Z95.2 Presence of prosthetic heart valve (principal); I25.5 Ischemic cardiomyopathy | CPT/HCPCS: 93306 ==

== ENCOUNTER → 2021-07-29 | Outpatient (CLI) | payer MEDICARE ==
[~2021-07-29] MED LIST changes: +DOCU-378 PO; -DOCU250C90 PO; -ISOS60TA4 PO; +ISOS60TA77 PO
== END | disposition home or self-care (01) ==
LOC: SHCH 15:42
PROVIDERS: ATTEND Internal Medicine Cardiovascular Disease
DX: I07.1 Rheumatic tricuspid insufficiency (principal); I27.20 Pulmonary hypertension, unspecified; E11.9 Type 2 diabetes mellitus without complications; E78.5 Hyperlipidemia, unspecified; I10 Essential (primary) hypertension; Z95.2 Presence of prosthetic heart valve
CPT/HCPCS: 93306

== ENCOUNTER → 2023-03-01 | Outpatient (CLI) | payer MEDICARE ==
[2023-03-01 11:58] LABS: BASOPHILS # (AUTO) 0.03 K/uL (0.00-0.20); BASOPHILS % (AUTO) 0.5 % (0.0-5.0); EOSINOPHILS # (AUTO) 0.12 K/uL (0.00-0.70); HEMATOCRIT 32.2 % (42-54); IMMATURE GRANULOCYTE ABSOLUTE 0.06 K/uL (0-1); LYMPHOCYTES # (AUTO) 0.8 K/uL (1.0-4.8); LYMPHOCYTES % (AUTO) 13.6 % (21.0-51.0); MEAN CORPUSCULAR HEMOGLOBIN 29.8 pg (27.0-33.0); MEAN CORPUSCULAR HGB CONC 32.3 g/dL (32.0-36.0); MEAN CORPUSCULAR VOLUME 92.3 fL (79-99); MONOCYTES # (AUTO) 0.6 K/uL (0.1-1.0); MONOCYTES % (AUTO) 10.5 % (3.0-13.0); NEUTROPHILS # (AUTO) 4.3 K/uL (1.8-7.7); NEUTROPHILS % (AUTO) 72.4 % (40.0-77.0); PLATELET COUNT (AUTO) 333 K/uL (130-400); RED BLOOD CELL COUNT(AUTO) 3.49 MIL/uL (4.50-6.20); RED CELL DISTRIBUTION WIDTH 15.2 % (11.0-15.5); WHITE BLOOD COUNT (AUTO) 5.9 K/uL (4.8-10.8)
[2023-03-01 12:18] LABS: CREATININE 1.5 mg/dL (0.5-1.5); POTASSIUM 5.4 mmol/L (3.5-5.1)
== END | disposition home or self-care (01) ==
LOC: LAB 10:40
PROVIDERS: ATTEND Internal Medicine Cardiovascular Disease
DX: I25.10 Atherosclerotic heart disease of native coronary artery without angina pectoris (principal); I11.0 Hypertensive heart disease with heart failure; I50.9 Heart failure, unspecified
CPT/HCPCS: 36415; 80048; 83880; 85025

== ENCOUNTER → 2023-04-02 | Outpatient (CLI) | payer MEDICARE | END | disposition home or self-care (01) | LOC: SHCH 13:23 | PROVIDERS: ATTEND Internal Medicine Cardiovascular Disease | DX: I51.7 Cardiomegaly (principal); R06.00 Dyspnea, unspecified; E78.5 Hyperlipidemia, unspecified; Z95.2 Presence of prosthetic heart valve | CPT/HCPCS: 93306 ==